=== PATIENT | female | born 1955 | race Caucasian/White ===

== ENCOUNTER 2016-03-23 11:31 | Inpatient (IN) | payer OTHER ==
[~2016-03-23] VITALS: Ht 157.5 cm; Wt 65.5 kg
[~2016-03-23 11:31] MED LIST: ADVAIR 100/501 DISK IH; Aspirin Chewable PO; BAYER CHEWABLE81 MG PO; BENTYL10 MG PO; CLOPIDOGREL75 MG PO; CYANOCOBALAM1000 MCG PO; DELTASONE20 MG PO; DURAGESIC25 MCG TD; ENDOCET 5-3251 EACH PO; GLIPIZIDE ER2.5 M1 PO; GLUCOPHAGE1000 MG PO; HABITROL,NICODE21 MG TD; HYDROCHLOROTHIA25 MG PO; Hydrodiuril,Oretic,E PO; LIDODERM 5% P1 PATCH TD; LISINOPRIL10 MG PO; LOFIBRA,TRIGLI160 MG PO; LOPRESSOR25 MG PO; LOSARTAN POTASS50 MG PO; LYRICA300 MG PO; Lofibra,Triglide PO; METOPROLOL SUCC50 MG PO; NEXIUM40 MG PO; NICOTINE PATCH1 EAC2 TD; NITROSTAT0.4 MG SL; Nitrostat,NitroQuick SL; PERCOCET 10/1 TABLET PO; PROCARDIA XL90 MG PO; Procardia XL,Adalat PO; Robitussin DM PO; SENNA PLUS TAB1 EACH PO; SPIRIVA1 INHALATI IH; TESSALON PERLE100 MG PO; TIZANIDINE HCL4 MG PO; TOPROL XL100 MG PO; VALIUM2 MG PO; VITAMIN D1000 INTUN PO; VITAMIN D31000 UNI2 PO; XOPENEX HF200 INHALA IH; Xopenex HFA Inhaler IH; ZESTRIL,PRINIVI40 M1 PO; ZITHROMAX250 MG PO; ZOCOR80 MG PO; Zocor PO
[2016-03-23 12:43] VITALS: BP 133/65
[2016-03-23 12:53] LABS: HEMATOCRIT 30.4 % (36.0-46.0); MCH 26.1 PG (29.0-34.0); MCHC 31.9 G/DL (30.0-36.0); MCV 81.7 FL (83-99); MEAN PLAT.VOLUME 10.1 uM^3 (9.5-12.4); PLATELET COUNT 389 K/uL (156-360); RBC DIS.WIDTH-CV 15.4 % (11.8-14.6); RBC DIS.WIDTH-SD 45.8 % (39-53); RED BLOOD COUNT 3.72 M/uL (3.80-5.20); WHITE BLOOD COUNT 7.6 K/uL (4.1-10.2)
[2016-03-23 13:24] LABS: CHLORIDE 104 MEQ/L (99-109); POTASSIUM 3.8 MEQ/L (3.7-5.4); SODIUM 141 MEQ/L (136-147)
[2016-03-23 13:43] LABS: ANION GAP 15 MEQ/L (2-14); GFR ESTIMATE (CALCULATED) > 59 mL/min/; GLUCOSE 105 mg/dL (70-99); SAMPLE HEMOLYSIS CHECK 0; SAMPLE ICTERIC CHECK 0; SAMPLE LIPEMIA CHECK 0; UREA NITROGEN (BUN) 14 mg/dL (9-23)
[2016-03-23 23:55] LABS: POINT-OF-CARE METER ID UU13113675
[2016-03-24] VITALS (7 sets, daily range): BP systolic 95–184; BP diastolic 55–90
[2016-03-24 09:58] LABS: ANION GAP 10 MEQ/L (2-14); CHLORIDE 104 MEQ/L (99-109); GFR ESTIMATE (CALCULATED) 53 mL/min/; POTASSIUM 4.1 MEQ/L (3.7-5.4); SAMPLE HEMOLYSIS CHECK 0; SAMPLE ICTERIC CHECK 0; SAMPLE LIPEMIA CHECK 0; SODIUM 139 MEQ/L (136-147); UREA NITROGEN (BUN) 15 mg/dL (9-23)
[2016-03-24 10:01] LABS: GLUCOSE 173 mg/dL (70-99)
[2016-03-24 16:48] LABS: POINT-OF-CARE METER ID UU14188577
[2016-03-25 01:08] VITALS: BP 96/53
[2016-03-25 04:00] VITALS: BP 92/56
[2016-03-25 07:48] VITALS: BP 102/58
[2016-03-25 08:10] LABS: POINT-OF-CARE METER ID UU14149397
[2016-03-25 11:25] VITALS: BP 118/76
[2016-03-25 11:29] LABS: POINT-OF-CARE METER ID UU14149397
[2016-03-25 16:18] LABS: POINT-OF-CARE METER ID UU14149397
[2016-03-25 16:30] VITALS: BP 153/72
[2016-03-26] VITALS (9 sets, daily range): BP systolic 153–200; BP diastolic 72–99
[2016-03-26 11:37] LABS: POINT-OF-CARE METER ID UU13113675
[2016-03-26 16:04] LABS: POINT-OF-CARE METER ID UU14149397
[2016-03-26 21:23] LABS: POINT-OF-CARE METER ID UU14149397
[2016-03-27 00:07] VITALS: BP 107/59
[2016-03-27 03:58] VITALS: BP 132/78
[2016-03-27 07:57] LABS: POINT-OF-CARE METER ID UU14188577
[2016-03-27 08:30] VITALS: BP 99/58
[2016-03-27 11:30] VITALS: BP 125/61
[2016-03-27 16:30] VITALS: BP 137/65
[2016-03-27 21:34] LABS: POINT-OF-CARE METER ID UU14188577; POINT-OF-CARE USER ID AHSUCEG
[2016-03-27 23:34] VITALS: BP 124/60
[2016-03-28 07:42] LABS: POINT-OF-CARE METER ID UU14149397
[2016-03-28 09:00] VITALS: BP 141/68
[2016-03-28 11:21] LABS: POINT-OF-CARE METER ID UU14149397
[2016-03-28 16:00] VITALS: BP 117/61
[2016-03-28 17:06] LABS: POINT-OF-CARE METER ID UU14149397
[2016-03-28 22:12] LABS: POINT-OF-CARE METER ID UU14149397
[2016-03-28 23:31] VITALS: BP 136/65
[2016-03-29 07:12] LABS: POINT-OF-CARE METER ID UU14149397
[2016-03-29 07:33] VITALS: BP 152/72
[2016-03-29 12:14] LABS: POINT-OF-CARE METER ID UU14188577
[2016-03-29 16:30] VITALS: BP 141/70
[2016-03-29 16:43] LABS: POINT-OF-CARE METER ID UU14188577
[2016-03-29] MEDS ORDERED: TIZANIDINE HCL4 MG PO (17:05)
[2016-03-29] MEDS ORDERED: ENDOCET 5-3251 EACH PO (17:05)
[2016-03-29] MEDS ORDERED: DIAZEPAM5 MG PO (17:05)
== END 2016-03-29 17:51 | disposition home health service (06) | DRG 908 ==
LOC: SDC 11:31 → EDSTATUS 14:45 → 2SOUTH 14:47 → SDC 16:17 → EDSTATUS 16:17 → 2SOUTH 23:47 → 3EAST 23:47
PROVIDERS: Hospitalist; Neurological Surgery
DX: T85.698A Other mechanical complication of other specified internal prosthetic devices, implants and grafts, initial encounter (principal); M47.12 Other spondylosis with myelopathy, cervical region; Y83.1 Surgical operation with implant of artificial internal device as the cause of abnormal reaction of the patient, or of later complication, without mention of misadventure at the time of the procedure; R33.9 Retention of urine, unspecified; I10 Essential (primary) hypertension; I25.10 Atherosclerotic heart disease of native coronary artery without angina pectoris; E78.5 Hyperlipidemia, unspecified; E11.9 Type 2 diabetes mellitus without complications; J44.9 Chronic obstructive pulmonary disease, unspecified; M81.0 Age-related osteoporosis without current pathological fracture; F17.210 Nicotine dependence, cigarettes, uncomplicated; Z98.1 Arthrodesis status; I25.2 Old myocardial infarction; Z95.5 Presence of coronary angioplasty implant and graft; Z85.43 Personal history of malignant neoplasm of ovary; Z86.73 Personal history of transient ischemic attack (TIA), and cerebral infarction without residual deficits; Z88.0 Allergy status to penicillin
CPT/HCPCS: 72020; 72040; 76000; 80048; 82948; 85027; 93005; 94799; 97530 GO; C1713; C1768; J0330; J0360; J0690; J1100; J1170; J1580; J1815; J2250; J2405; J2710; J2930; J3010; J3370; J3480; J7040; S0020

== ENCOUNTER → 2017-02-16 | Outpatient (CLI) | payer OTHER ==
[~2017-02-16] MED LIST changes: +DIAZEPAM5 MG PO
== END | disposition home or self-care (01) ==
DX: R13.12 Dysphagia, oropharyngeal phase (principal); Z87.09 Personal history of other diseases of the respiratory system
CPT/HCPCS: 92611 GN; G8996 GN CI; G8997 GN CI; G8998 GN CI